=== PATIENT | female | born 1995 | race Two or more races ===

== ENCOUNTER 2021-02-21 15:57 | Emergency (ER) | payer SELFPAY ==
[~2021-02-21] VITALS: Ht 162.6 cm; Wt 54.0 kg
[2021-02-21 16:30] VITALS: BP 125/70
== END 2021-02-21 17:10 | disposition home or self-care (01) ==
LOC: ER 15:57
DX: F41.0 Panic disorder [episodic paroxysmal anxiety] (principal); J45.909 Unspecified asthma, uncomplicated; Z98.890 Other specified postprocedural states
CPT/HCPCS: 99281